=== PATIENT | female | born 1960 | race Two or more races ===

== ENCOUNTER 2018-10-19 17:22 | Inpatient (IN) | payer OTHER ==
[~2018-10-19] VITALS: Ht 243.8 cm; Wt 5.0 kg
[~2018-10-19 17:22] MED LIST: PRILO; ZANTAC
--- NOTE | 2018-10-19 17:49 | NUR ---
PTE ALERTA Y ORIENTADA X 3 ESFERAS QUIEN REFIERE DOLOR ABDOMINAL CUADRANTE INFERIOR RT DESDE EDITH,NO VOMITOS NI DIARREAS.PTE REFIERE CA DE HUESO EN GWENDOLYN RT.
[2018-10-19] MEDS ORDERED: VASOTEC5 MG (17:52)
[2018-10-19] MEDS ORDERED: ATENOLOL25 MG (17:52)
--- NOTE | 2018-10-19 20:11 | NUR ---
SERECIBE PTE MASCULIBNO ALERTAY ORIENTADA X3,[place] DE FAMILIAR,EVALUADA POR TA,SE ORIENTA A PTE SOBRE ORDEN MEDICA,SE REYMUNDO MUERSTRAS Y SE ENVIAN A LABORATORIO,SE CANALIZAY MANTIENE IVF PATENTE AREA LIBREDE EDEMA Y ENROJECIMIENTO,SE ADMINISTRAN MEDICAMENTOS LOS CUALES TOLERA,SE ADMINISTRA GASTROVIEW PARA REALIZAR ESTUIDIO DE CT,SE MANTIENE A PTE EN CAMA K-2 EN OBSERVACION POR CAMBIOS.
--- NOTE | 2018-10-20 00:18 | NUR ---
SE RECIBE DE TURNO ANTERIOR. PACIENTE FEMENINA. ALERTA Y ORIENTADA EN BINU ESFERAS. SE OBSERVA CON BUEN PATRON RESPIRATORIO. PIEL TIBIA AL TACTO. CANALIZACION PATENTE, KACIE DE EDEMA Y/O ENROJECIMIENTO CON SALINE LOCK COLOCADO. PACIENTE EN ESPERA DE LECTURA DE CT SCAN PARA RE-EVALUACION MEDICA.
--- NOTE | 2018-10-20 02:16 | NUR ---
JUNTO A MR SHAH SE REALIZA INSERCION DE NASOGASTRICO RAJ ORDENADO. SE AUSCULTA EN ABDOMEN. AL MOMENTO NO PRESENTA RESIDUAL. SE CONECTA A SUCCION BAJA INTERMITENTE. SE NOTIFICA A DR KENYON.
--- NOTE | 2018-10-20 07:28 | NUR ---
PACIENTE ALERTA Y ORIENTADA EN SUZANNA BINU ESFERAS, PRESENTA BUEN PATRON RESPIRATORIO Y KACIE DE DOLOR, CANALIZADA EN BRAZO RT PATENTE Y KACIE DE S/S DE FLEBITIS E INFILTRACION, RECIBIENDO 0.9% NSS A 175 ML/HR, SONDA NASOGASTRICA INSERTADA EN FOSA NASAL LT CONECTADA A SUCCION INTERMITENTE BAJA PRESENTANDO SECRECIONES COLOR [place], ABDOMEN BLANDO AL TACTO, PENDIENTE CONSULTA DE DR HENNING POR "SMALL BOWEL OBSTRUCTION".
--- NOTE | 2018-10-20 09:30 | NUR ---
SE ORIENTA PTE SOBRE PROCEDIMIENTO DE SONDA URINARIA LA CUAL REHUSA. SE PROCEDE A NOTIFICAR A DR. HENNING QUEIN NO EWELINA ORDENES VERBALES.
[2018-10-22] MEDS ORDERED: GAS RELIEF80 MG PO (12:21)
[2018-10-22] MEDS ORDERED: LEVSIN/SL0.125 MG SL (12:22)
== END 2018-10-22 13:13 | disposition home or self-care (01) | DRG 389 ==
LOC: ER 17:22 → SURH 10-20 11:26
PROVIDERS: ADMIT Colon & Rectal Surgery
DX: K56.690 Other partial intestinal obstruction (principal); N39.0 Urinary tract infection, site not specified; C34.31 Malignant neoplasm of lower lobe, right bronchus or lung; C79.51 Secondary malignant neoplasm of bone; B96.29 Other Escherichia coli [E. coli] as the cause of diseases classified elsewhere; Z92.21 Personal history of antineoplastic chemotherapy; Z85.038 Personal history of other malignant neoplasm of large intestine; Z93.2 Ileostomy status

== ENCOUNTER 2019-08-06 12:35 | Inpatient (IN) | payer OTHER ==
[~2019-08-06] VITALS: Ht 170.2 cm; Wt 84.4 kg
[~2019-08-06 12:35] MED LIST changes: +ATENOLOL25 MG; +GAS RELIEF80 MG PO; +LEVSIN/SL0.125 MG SL; +VASOTEC5 MG
[2019-08-06] MEDS ORDERED: ZANTAC150 M3 PO (12:57)
[2019-08-06] MEDS ORDERED: PRILOSEC OTC20 MG PO (12:58)
[2019-08-08] MEDS ORDERED: GAS RELIEF80 MG PO (14:40)
[2019-08-08] MEDS ORDERED: ATENOLOL25 MG PO (14:40)
[2019-08-08] MEDS ORDERED: FAMOTIDINE20 MG PO (14:40)
[2019-08-08] MEDS ORDERED: PRILOSEC OTC20 MG PO (14:40)
== END 2019-08-08 15:11 | disposition home or self-care (01) | DRG 375 ==
LOC: ER 12:35 → SEC-K 14:25 → SURH 14:25
PROVIDERS: ADMIT Internal Medicine Geriatric Medicine
PROC: 30233N1 Transfusion of Nonautologous Red Blood Cells into Peripheral Vein, Percutaneous Approach (ICD-10-PCS; principal; 2019-08-06)
PROC: 8E0ZXY6 Isolation (ICD-10-PCS; 2019-08-06)
PROC: 4A033R1 Measurement of Arterial Saturation, Peripheral, Percutaneous Approach (ICD-10-PCS; 2019-08-07)
DX: C18.8 Malignant neoplasm of overlapping sites of colon (principal); C78.00 Secondary malignant neoplasm of unspecified lung; D63.0 Anemia in neoplastic disease; I11.9 Hypertensive heart disease without heart failure; D70.1 Agranulocytosis secondary to cancer chemotherapy; R09.02 Hypoxemia; K59.09 Other constipation

== ENCOUNTER 2019-08-21 22:44 | Emergency (ER) | payer OTHER ==
[~2019-08-21] VITALS: Ht 170.2 cm; Wt 85.7 kg
[~2019-08-21 22:44] MED LIST changes: +ATENOLOL25 MG PO; +FAMOTIDINE20 MG PO; +PRILOSEC OTC20 MG PO; +ZANTAC150 M3 PO
== END 2019-08-22 06:17 | disposition home or self-care (01) ==
LOC: ER 22:44
DX: R07.89 Other chest pain (principal)

== ENCOUNTER 2020-10-13 04:06 | Emergency (ER) | payer OTHER ==
[~2020-10-13] VITALS: Ht 172.7 cm; Wt 70.8 kg
[2020-10-13] MEDS ORDERED: CLONAZEPAM2 M1 (04:28)
== END 2020-10-13 11:33 | disposition home or self-care (01) ==
LOC: ER 04:06
DX: T18.5XXA Foreign body in anus and rectum, initial encounter (principal); X58.XXXA Exposure to other specified factors, initial encounter; Y93.89 Activity, other specified; Y92.89 Other specified places as the place of occurrence of the external cause; Y99.8 Other external cause status